=== PATIENT | female | born 1980 | race Caucasian/White ===

== ENCOUNTER → 2018-02-22 | Outpatient (CLI) | payer BC ==
[~2018-02-22] MED LIST: LEXAPRO 10 MG T10 M2 PO; LO LOESTRIN FE1 EACH PO; MULTIVITAMINS1 EAC7 PO; ZANTAC 150MG T150 MG PO; ZYRTEC10 M5 PO
== END ==
LOC: RAD 10:32
DX: J40 Bronchitis, not specified as acute or chronic (principal)